=== PATIENT | female | born 1985 | race Caucasian/White ===

== ENCOUNTER 2017-05-05 07:51 | Day surgery (SDC) | payer OTHER ==
[2017-05-05 08:30] VITALS: BMI 30.1
--- NOTE | 2017-05-05 09:20 | CP.SDSHP ---
Same Day Surgery H & P - History Proposed Procedure: COLONSCOPY Pre-Op Diagnosis: SEE NOTES - Previous Medical/Surgical History Pain: 4.Moderate Pain - Allergies Allergies: Allergies No Known Allergies Allergy (Verified 10/09/16 12:47) - Physical Exam General Appearance: N Vital Signs: Vital Signs 05/05/17 08:43 Temperature 97.7 F Pulse Rate 77 Respiratory 19 Rate Blood Pressure 110/72 O2 Sat by Pulse 99 Oximetry Mental Status: Alert & Oriented x3 Neuro: WNL Heart: WNL Lungs: WNL GI: Other - {Optional Preform as Required} Breast: WNL Abdomen: Other Rectal: Other Integument: WNL : WNL Ortho: WNL ENT: WNL - Impression Pt. Evaluated Today:Candidate for Anesthesia & Procedure: Yes - Date & Time Time: 09:20 Short Stay Discharge - Short Stay Discharge Admitting Diagnosis/Reason for Visit: RECTAL BLEEDING Disposition: HOME/ ROUTINE
[2017-05-05] MEDS ORDERED: Midazolam 2 MG/2 ML VIAL ONE (09:24)
[2017-05-05] MEDS ORDERED: Propofol 10 mg/ml Inj (20 ML) ONE (09:25)
[2017-05-05] MEDS ORDERED: Lactated Ringer's 500 ML IV ONE ×2 (09:25)
[2017-05-05 09:29] VITALS: O2SAT 100
[2017-05-05] MEDS ORDERED: Belladonna-Phenobarbital PO ONE (09:50)
[2017-05-05 11:22] VITALS: TEMP 97.1
[2017-05-05 11:26] VITALS: RESP 17
[2017-05-05 11:51] VITALS: BP 94/52; PULSE 73
== END 2017-05-05 11:15 | disposition home or self-care (01) ==
LOC: C.ENDO 07:51
PROVIDERS: ATTEND Specialist
DX: K64.8 Other hemorrhoids (principal); K64.4 Residual hemorrhoidal skin tags; K60.2 Anal fissure, unspecified; K62.5 Hemorrhage of anus and rectum; K58.9 Irritable bowel syndrome, unspecified; R10.84 Generalized abdominal pain; R19.4 Change in bowel habit
CPT/HCPCS: 45380; 84703; 88305; J2250; J2704; J7120

== ENCOUNTER 2018-04-27 13:41 | Emergency (ER) | payer OTHER ==
[2018-04-27 13:52] VITALS: BMI 29.8
[2018-04-27 13:57] VITALS: BP 100/68; PULSE 78; RESP 16; TEMP 98.1; O2SAT 97
--- NOTE | 2018-04-27 14:51 | RAD ---
Date of service: 04/27/2018 PROCEDURE: Right Knee Radiographs. HISTORY: r/o fx COMPARISON: None. FINDINGS: BONES: Normal. No fracture. JOINTS: Normal. No osteoarthritis. JOINT EFFUSION: None. OTHER FINDINGS: None. IMPRESSION: Normal radiographs of the right knee.
--- NOTE | 2018-04-27 15:42 | C.PDOC ---
History Of Present Illness 32 y/o female, RUTHIE, presents to the ED c/o right knee pain for three days. She reports the pain worsens when walking up and down the stairs. The patient states she took Motrin at home yesterday but not today. She denies any recent fall/trauma, weakness, numbness or tingling. Time Seen by Provider: 04/27/18 13:51 Chief Complaint (Nursing): Lower Extremity Problem/Injury History Per: Patient History/Exam Limitations: no limitations Onset/Duration Of Symptoms: Days Current Symptoms Are (Timing): Still Present Recent travel outside of the [place]: No Past Medical History Reviewed: Historical Data, Nursing Documentation, Vital Signs Vital Signs: Last Vital Signs Temp 98.1 F 04/27/18 13:56 Pulse 78 04/27/18 13:56 Resp 16 04/27/18 13:56 BP 100/68 04/27/18 13:56 Pulse Ox 97 04/27/18 15:48 - Medical History PMH: Denies: Chronic Kidney Disease Other PMH: GI disorder, Gastroesophogeal reflux Surgical History: Cholecystectomy, Family History: States: Unknown Family Hx - Social History Hx Tobacco Use: No Hx Alcohol Use: No Hx Substance Use: No - Immunization History Hx Tetanus Toxoid Vaccination: No Hx Influenza Vaccination: Yes Hx Pneumococcal Vaccination: No Review Of Systems Except As Marked, All Systems Reviewed And Found Negative. Musculoskeletal: Positive for: Other (right knee pain) Neurological: Negative for: Weakness, Numbness, Other (tingling) Physical Exam - Physical Exam Appears: Well, Non-toxic, No Acute Distress Skin: Normal Color, Warm, Dry Head: Atraumatic, Normacephalic Eye(s): bilateral: PERRL, EOMI Oral Mucosa: Moist Chest: Symmetrical Cardiovascular: Rhythm Regular, No Murmur Extremity: Tenderness (mild, diffuse right knee tenderness) Neurological/Psych: Oriented x3 ED Course And Treatment O2 Sat by Pulse Oximetry: 97 (RA) Pulse Ox Interpretation: Normal - Other Rad Right Knee X-Ray: Viewed By Me, Read By Radiologist Interpretation: FINDINGS: BONES: Normal. No fracture. JOINTS: Normal. No osteoarthritis. JOINT EFFUSION: None. OTHER FINDINGS: None. IMPRESSION: Normal radiographs of the right knee. Medical Decision Making Medical Decision Making: Impression: 32 y/o female with right knee pain Plan: --Right Knee X-Ray Disposition - Disposition Referrals: Ayana Grove MD [Non-Staff] - Disposition: HOME/ ROUTINE Disposition Time: 14:20 Condition: GOOD Additional Instructions: ESPERANZA DEJESUS, thank you for letting us take care of you today. Your provider was Kenneth Lira DO and you were treated for RT KNEE PAIN. The emergency medical care you received today was directed at your acute symptoms. If you were prescribed any medication, please fill it and take as directed. It may take several days for your symptoms to resolve. Return to the Emergency Department if your symptoms worsen, do not improve, or if you have any other problems. Please contact your doctor or call one of the physicians/clinics you have been referred to that are listed on the Patient Visit Information form that is included in your discharge packet. Bring any paperwork you were given at discharge with you along with any medications you are taking to your follow up visit. Our treatment cannot replace ongoing medical care by a primary care provider outside of the emergency department. Thank you for allowing the [facility] team to be part of your care today. Follow up with your primary care doctor in 3-4 days for re-evaluation and further management. Instructions: Knee Sprain (DC) Forms: Major Aide (Italian) - Clinical Impression Clinical Impression: Knee sprain - PA / OUTBOARD TECHNICIAN / Resident Statement / has reviewed & agrees with the documentation as recorded. - Scribe Statement The provider has reviewed the documentation as recorded by the Scribe (Blanca Colon) Provider Attestation: All medical record entries made by the Scribe were at my direction and personally dictated by me. I have reviewed the chart and agree that the record accurately reflects my personal performance of the history, physical exam, medical decision making, and the department course for this patient. I have also personally directed, reviewed, and agree with the discharge instructions and disposition.
== END 2018-04-27 15:26 | disposition home or self-care (01) ==
LOC: C.ER 13:41
DX: S83.91XA Sprain of unspecified site of right knee, initial encounter (principal); X58.XXXA Exposure to other specified factors, initial encounter

== ENCOUNTER 2019-02-01 07:24 | Day surgery (SDC) | payer OTHER ==
--- NOTE | 2019-02-01 09:43 | CP.SDSHP ---
Same Day Surgery H & P - History Proposed Procedure: EGD Pre-Op Diagnosis: SEE NOTES - Previous Medical/Surgical History Misc: Other Pain: 4.Moderate Pain - Allergies Allergies: Allergies No Known Allergies Allergy (Verified 04/27/18 13:51) - Physical Exam General Appearance: N Vital Signs: Vital Signs 02/01/19 07:48 Temperature 96.8 F L Pulse Rate 78 Respiratory 17 Rate Blood Pressure 104/62 O2 Sat by Pulse 99 Oximetry Mental Status: Alert & Oriented x3 Neuro: WNL Heart: WNL Lungs: WNL GI: Other - {Optional Preform as Required} Breast: WNL Abdomen: Other Rectal: Other Integument: WNL : WNL Ortho: Other ENT: WNL - Impression Pt. Evaluated Today:Candidate for Anesthesia & Procedure: Yes - Date & Time Time: 09:43 Short Stay Discharge - Short Stay Discharge Admitting Diagnosis/Reason for Visit: DYSPEPSIA Disposition: HOME/ ROUTINE
[2019-02-01] MEDS ORDERED: Propofol 10 mg/ml Inj (20 ML) ONE (09:50)
[2019-02-01 09:53] VITALS: O2SAT 100
[2019-02-01] MEDS ORDERED: Belladonna-Phenobarbital PO ONE (10:30)
[2019-02-01 10:33] VITALS: TEMP 97.1
[2019-02-01] MEDS ORDERED: Acetaminophen IV 1,000 MG in Premixed IV 1 EA IV ONE (11:00)
[2019-02-01 11:31] VITALS: BP 101/65; PULSE 76; RESP 18
== END 2019-02-01 11:24 | disposition home or self-care (01) ==
LOC: C.ENDO 07:24
PROVIDERS: ATTEND Specialist
DX: K29.80 Duodenitis without bleeding (principal); K29.50 Unspecified chronic gastritis without bleeding; K44.9 Diaphragmatic hernia without obstruction or gangrene; K30 Functional dyspepsia
CPT/HCPCS: 43239; 84703; 88305; J0131; J2405; J2704